=== PATIENT | male | born 1995 | race African-American/Black ===

== ENCOUNTER 2017-03-19 23:48 | Emergency (ER) | payer MEDICAID ==
[~2017-03-19] VITALS: Ht 185.4 cm; Wt 81.6 kg
--- NOTE | 2017-03-19 23:52 | NUR ---
Obdulia hunter in ED - 03/19/17 at 2353 by [facility] AMBULATED TO ER BED 4
[2017-03-19 23:57] VITALS: BP 123/100
--- NOTE | 2017-03-20 00:02 | NUR ---
AMBULATED TO ER BED 11
--- NOTE | 2017-03-20 00:08 | NUR ---
21/M CAME IN W C/O 02/10 RECTAL PAIN, ACUTE ONSET X 3 DAYS. PT REPORTS HE HAS BEEN CONSTIPATEDX 3 DAYS AND HAS BLOOD SMEARING WHEN HE WIPES. REPORTS NAUSEA, DENIES VOMITING. ABD SOFT, ROUND, NONTENDER, BS ACTIVE X4. DENIES PMH, RX/OTC. PT REPORTS HISTORY OF METH USE, LAST USE WAS 4 DAYS AGO.
--- NOTE | 2017-03-20 01:23 | NUR ---
PT RESTING IN BED COMFORTABLY, VSS, ALL NEEDS MET AT THIS TIME
--- NOTE | 2017-03-20 01:40 | NUR ---
ALL RESULTS BACK AND NOTED BY ERMD AND FOR D/C.
[2017-03-20 01:47] VITALS: BP 138/74
--- NOTE | 2017-03-20 01:47 | NUR ---
Patient discharged with v/s stable. Written and verbal after care instructions given and explained. Patient alert, oriented and verbalized understanding of instructions. Ambulatory with steady gait. All questions addressed prior to discharge. ID band removed. Patient advised to follow up with PMD. Rx of MAGNESIUM CITRATE given. Patient educated on indication of medication including possible reaction and side effects. Opportunity to ask questions provided and answered.
== END 2017-03-20 01:47 | disposition home or self-care (01) ==
LOC: MED 23:48
DX: K59.4 Anal spasm (principal); R03.0 Elevated blood-pressure reading, without diagnosis of hypertension
CPT/HCPCS: 74022; 99284

== ENCOUNTER 2017-04-17 22:33 | Emergency (ER) | payer MEDICAID ==
[~2017-04-17] VITALS: Ht 185.4 cm; Wt 83.9 kg
[2017-04-17 23:14] VITALS: BP 153/81
[2017-04-17 23:21] VITALS: BP 153/81
--- NOTE | 2017-04-17 23:22 | NUR ---
SENT FOR XRAY OF LEFT FOREARM WITH [employer] AMBULATORY
--- NOTE | 2017-04-17 23:49 | NUR ---
PT PLACED IN OVERFLOW CHAIR 4.
[2017-04-18] MEDS ORDERED: KETOROLAC 30 MG/ML VIAL IM ONE (00:15)
[2017-04-18] MEDS ORDERED: HYDROcodone/APAP 5/325 MG 1 TAB TAB PO ONE (00:15)
--- NOTE | 2017-04-18 00:51 | NUR ---
Pt taken to x-ray via w/c.
--- NOTE | 2017-04-18 01:05 | NUR ---
Pt eloped from facility without discharge instructions. Dr. Tobias made aware.
== END 2017-04-18 01:05 | disposition left against medical advice (07) ==
LOC: MED 22:33
DX: L03.012 Cellulitis of left finger (principal); R03.0 Elevated blood-pressure reading, without diagnosis of hypertension
CPT/HCPCS: 29125; 73030; 73090; 73130; 96372; 99284; J1885